=== PATIENT | male | born 1955 | race Caucasian/White ===

== ENCOUNTER 2017-09-21 18:49 | Inpatient (IN) | payer MEDICAID, OTHER ==
[~2017-09-21] VITALS: Ht 172.7 cm; Wt 81.6 kg
[2017-09-21 18:49] VITALS: BP_SYST 170
[~2017-09-21 18:49] MED LIST: CHOL500013 PO; FAMO20TA98 PO; FOLI-43 PO; FURO-150 PO; LEVO25TA58 PO; LORA-259 PO; MAGN400T10 PO; OLAN5TAB3 PO; POTA20TA83 PO; PROP10TA10 PO; SPIR25TA PO; TEMA30CA5 PO; THIA100T13 PO
[2017-09-21 19:22] LABS: BASOPHILS # (AUTO) 0.1 K/uL (0.0-0.2); BASOPHILS % (AUTO) 0.7 % (0.0-2.0); EOSINOPHILS # (AUTO) 0.2 K/uL (0.0-0.4); EOSINOPHILS % (AUTO) 2.5 % (0.0-4.0); HEMATOCRIT 45.3 % (36-54); LYMPHOCYTES # (AUTO) 1.7 K/uL (1.0-5.5); LYMPHOCYTES % (AUTO) 20.4 % (20.5-51.5); MEAN CORPUSCULAR HEMOGLOBIN 31 pg (27-31); MEAN CORPUSCULAR HGB CONC 33 % (32-36); MEAN CORPUSCULAR VOLUME 92 fL (79.0-98.0); MONOCYTES # (AUTO) 0.6 K/uL (0.0-1.0); MONOCYTES % (AUTO) 6.9 % (1.7-9.3); NEUTROPHILS # (AUTO) 5.9 K/uL (1.8-7.7); NEUTROPHILS % (AUTO) 69.5 % (40.0-70.0); PLATELET COUNT (AUTO) 346 K/uL (130-430); RED CELL DISTRIBUTION WIDTH 11.3 % (9.0-15.0); WHITE BLOOD COUNT (AUTO) 8.5 K/uL (4.8-10.8)
[2017-09-21 19:38] LABS: ANION GAP 7 (5-15); CALCIUM 9.2 mg/dL (8.4-11.0); CHLORIDE 91 mmol/L (98-107); CREATININE 1.12 mg/dL (0.55-1.30); POTASSIUM 4.2 mmol/L (3.5-5.1); SODIUM SERUM 126 mmol/L (136-145); UREA NITROGEN, BLOOD 9 mg/dL (8-21)
[2017-09-21 19:44] LABS: GFR AFRICAN AMERICAN 86 mL/min (>90); INR 0.9 (0.80-1.20); PROTHROMBIN TIME 9.4 SECS (9.5-12.5)
[2017-09-21 19:54] LABS: ALANINE AMINOTRANSFERASE 19 U/L (12-78); ALBUMIN 3.9 g/dL (3.4-4.8); ASPARTATE AMINOTRANSFERASE 14 U/L (10-37); FREE T4 (FREE THYROXINE) 0.9 ng/dL (0.6-1.6); TOTAL BILIRUBIN 0.6 mg/dL (0.0-1.0)
[2017-09-21 19:55] LABS: GLUCOSE 471 mg/dL (70-99)
[2017-09-21 19:56] LABS: ALCOHOL, BLOOD < 3 mg/dL (<10)
[2017-09-21] MEDS ORDERED: hydrALAZINE HCL 20 MG/ML VIAL IVP ONE (20:15)
[2017-09-21] MEDS ORDERED: NACL 0.9% 1,000 ML IV ONE (20:15)
[2017-09-21] MEDS ORDERED: INSULIN REGULAR, HUMAN 10 UNITS/0.1 ML INJ IVP ONE (20:15)
[2017-09-21] MEDS ORDERED: LORazepam 2 MG/ML VIAL (FOR ER USE) ONE (21:25)
[2017-09-21] MEDS ORDERED: LORazepam 2 MG/ML VIAL (FOR ER USE) IVP ONE (21:30)
[2017-09-21] MEDS ORDERED: LORazepam 2 MG/ML VIAL IVP PRN (21:45)
[2017-09-21] MEDS ORDERED: THIAMINE HCL 100 MG in NS 50 ML IV ONE (21:45)
[2017-09-21] MEDS ORDERED: PHENYTOIN SODIUM INJ 500 MG in NS 100 ML IV ONE (21:45)
[2017-09-21] MEDS ORDERED: cloNIDine HCL 0.1 MG TABLET PO PRN (21:45)
[2017-09-21 22:21] VITALS: BP_SYST 156
[2017-09-21 22:21] LABS: BILIRUBIN,URINE NEGATIVE (NEGATIVE); BLOOD, URINE NEGATIVE (NEGATIVE); CLARITY/URINE CLEAR (CLEAR); COLOR,URINE YELLOW (YELLOW); GLUCOSE,URINE 3+ (NEGATIVE); KETONES,URINE NEGATIVE (NEGATIVE); LEUKOCYTE ESTERASE ,URINE NEGATIVE (NEGATIVE); NITRITE, URINE NEGATIVE (NEGATIVE); PH,URINE 6.5 (5.0-8.0); PROTEIN URINE 1+ (NEGATIVE); UROBILINOGEN,URINE 0.2 (0.2-1.0)
[2017-09-21 22:27] LABS: BACTERIA,URINE RARE /HPF (None Seen); RBC,URINE 0-3 /HPF (0-3); WBC,URINE 0-3 /HPF (0-3)
[2017-09-21 22:32] LABS: BARBITURATE, URINE NEGATIVE (NEG <=200); BENZODIAZEPINE, URINE NEGATIVE (NEG <=150); CANNABINOID, URINE NEGATIVE (NEG <=50); COCAINE, URINE NEGATIVE (NEG <=150); METHAMPHETAMINES SCREEN,URINE NEGATIVE (NEG <=500); OPIATE, URINE NEGATIVE (NEG <=100); PHENCYCLIDINE SCREEN,URINE NEGATIVE (NEG <=25); UR TRICYCLIC ANTIDEPRESSANTS NEGATIVE (NEG <=300); URINE AMPHETAMINE NEGATIVE (NEG <=500); URINE METHADONE NEGATIVE (NEG <=200); URINE OXYCODONE SCREEN NEGATIVE (NEG <=100); URINE PROPOXYPHENE SCREEN NEGATIVE (NEG <=300)
[2017-09-21] MEDS ORDERED: PHENYTOIN SODIUM 100 MG/2 ML VIAL (DILANTIN) ONE ×2 (22:33→22:35)
[2017-09-21] MEDS: INSULIN REGULAR, HUMAN 100 UNITS/ML, 10 ML VIAL (novoLIN R) SUBCUT PRN (23:16)
[2017-09-22] MEDS ORDERED: THIAMINE HCL 100 MG TABLET PO ONE
[2017-09-22] MEDS: INSULIN REGULAR, HUMAN 100 UNITS/ML, 10 ML VIAL (novoLIN R) SUBCUT PRN ×5 (03:08→20:37)
[2017-09-22 04:00] VITALS: BP_SYST 133
[2017-09-22 08:00] VITALS: BP_SYST 123
[2017-09-22] MEDS ORDERED: ALBUTEROL SULFATE 0.083% 2.5 MG/3 ML VIAL.NEB INH ONE (08:30)
[2017-09-22 12:34] VITALS: BP_SYST 115
[2017-09-22] MEDS ORDERED: PHENYTOIN 100 MG CAPSULE PO ONE (15:00)
[2017-09-22] MEDS ORDERED: GLUCOSE 15 GM GEL (in 37.5 GM TUBE) PO PRN ×2 (15:30)
[2017-09-22] MEDS ORDERED: DEXTROSE 50%-WATER 50 ML DISP.SYRIN IVP PRN ×2 (15:30)
[2017-09-22 16:13] VITALS: BP_SYST 147
[2017-09-22 20:00] VITALS: BP_SYST 156
[2017-09-22] MEDS: PHENYTOIN 100 MG CAPSULE PO SCH (20:36)
[2017-09-22 23:48] VITALS: BP_SYST 134
[2017-09-23 06:30] LABS: CALCIUM 8.5 mg/dL (8.4-11.0); CREATININE 0.86 mg/dL (0.55-1.30); POTASSIUM 3.4 mmol/L (3.5-5.1)
[2017-09-23 06:40] LABS: ALBUMIN 3.3 g/dL (3.4-4.8); TOTAL BILIRUBIN 0.5 mg/dL (0.0-1.0)
[2017-09-23 07:23] LABS: BASOPHILS # (AUTO) 0.1 K/uL (0.0-0.2); BASOPHILS % (AUTO) 0.9 % (0.0-2.0); EOSINOPHILS # (AUTO) 0.2 K/uL (0.0-0.4); EOSINOPHILS % (AUTO) 1.9 % (0.0-4.0); HEMOGLOBIN 14.2 g/dL (14.0-18.0); LYMPHOCYTES # (AUTO) 2.4 K/uL (1.0-5.5); LYMPHOCYTES % (AUTO) 24.9 % (20.5-51.5); MEAN CORPUSCULAR HEMOGLOBIN 31 pg (27-31); MEAN CORPUSCULAR HGB CONC 33 % (32-36); MEAN CORPUSCULAR VOLUME 92 fL (79.0-98.0); MONOCYTES # (AUTO) 0.5 K/uL (0.0-1.0); MONOCYTES % (AUTO) 5.4 % (1.7-9.3); NEUTROPHILS # (AUTO) 6.5 K/uL (1.8-7.7); NEUTROPHILS % (AUTO) 66.9 % (40.0-70.0); PLATELET COUNT (AUTO) 327 K/uL (130-430); RED BLOOD CELL COUNT(AUTO) 4.67 MIL/uL (4.2-6.2); RED CELL DISTRIBUTION WIDTH 11.7 % (9.0-15.0); WHITE BLOOD COUNT (AUTO) 9.7 K/uL (4.8-10.8)
[2017-09-23 08:00] VITALS: BP_SYST 140
[2017-09-23] MEDS: PHENYTOIN 100 MG CAPSULE PO SCH ×2 (08:28→20:45)
[2017-09-23 08:31] LABS: PROTHROMBIN TIME 9.9 SECS (9.5-12.5)
[2017-09-23] MEDS: INSULIN REGULAR, HUMAN 100 UNITS/ML, 10 ML VIAL (novoLIN R) SUBCUT PRN ×3 (11:35→20:55)
[2017-09-23] MEDS ORDERED: POTASSIUM CHLORIDE 20 MEQ TAB.PRT.SR PO ONE (12:15)
[2017-09-23 12:27] VITALS: BP_SYST 133
[2017-09-23] MEDS ORDERED: ASPIRIN 81 MG TABLET(ECOTRIN) PO ONE (15:15)
[2017-09-23 16:35] VITALS: BP_SYST 147
[2017-09-23 19:15] VITALS: BP_SYST 153
[2017-09-23] MEDS: POTASSIUM CHLORIDE 20 MEQ/PKT PACKET PO SCH (20:45)
[2017-09-24 00:59] VITALS: BP_SYST 154
[2017-09-24 07:24] LABS: BASOPHILS # (AUTO) 0.1 K/uL (0.0-0.2); BASOPHILS % (AUTO) 1.1 % (0.0-2.0); EOSINOPHILS # (AUTO) 0.4 K/uL (0.0-0.4); EOSINOPHILS % (AUTO) 3.5 % (0.0-4.0); HEMATOCRIT 43.2 % (36-54); HEMOGLOBIN 14.4 g/dL (14.0-18.0); LYMPHOCYTES # (AUTO) 2.6 K/uL (1.0-5.5); LYMPHOCYTES % (AUTO) 25.5 % (20.5-51.5); MEAN CORPUSCULAR HEMOGLOBIN 30 pg (27-31); MEAN CORPUSCULAR HGB CONC 33 % (32-36); MEAN CORPUSCULAR VOLUME 91 fL (79.0-98.0); MONOCYTES # (AUTO) 0.6 K/uL (0.0-1.0); MONOCYTES % (AUTO) 5.7 % (1.7-9.3); NEUTROPHILS # (AUTO) 6.4 K/uL (1.8-7.7); NEUTROPHILS % (AUTO) 64.2 % (40.0-70.0); PLATELET COUNT (AUTO) 354 K/uL (130-430); RED BLOOD CELL COUNT(AUTO) 4.73 MIL/uL (4.2-6.2); RED CELL DISTRIBUTION WIDTH 11.6 % (9.0-15.0); WHITE BLOOD COUNT (AUTO) 10.1 K/uL (4.8-10.8)
[2017-09-24 07:25] LABS: CALCIUM 9.2 mg/dL (8.4-11.0); CREATININE 0.85 mg/dL (0.55-1.30); POTASSIUM 4.2 mmol/L (3.5-5.1)
[2017-09-24 08:00] VITALS: BP_SYST 151
[2017-09-24] MEDS: PHENYTOIN 100 MG CAPSULE PO SCH (08:15)
[2017-09-24] MEDS: POTASSIUM CHLORIDE 20 MEQ/PKT PACKET PO SCH (08:15)
[2017-09-24] MEDS ORDERED: ASPIRIN 81 MG TABLET(ECOTRIN) PO SCH (09:00)
[2017-09-24] MEDS: INSULIN REGULAR, HUMAN 100 UNITS/ML, 10 ML VIAL (novoLIN R) SUBCUT PRN ×2 (11:46→16:59)
[2017-09-24 12:19] VITALS: BP_SYST 142
[2017-09-24] MEDS ORDERED: ASPI-1063 PO (14:30)
[2017-09-24] MEDS ORDERED: PHEN100C4 PO (14:30)
[2017-09-24] MEDS ORDERED: THIA100T13 PO (14:31)
[2017-09-24] MEDS ORDERED: MULT PO (14:31)
[2017-09-24] MEDS ORDERED: INSU10VI4 SUBCUT ×2 (14:35→14:36)
[2017-09-24 16:04] VITALS: BP_SYST 149
[2017-09-24 16:35] VITALS: BP_SYST 149
== END 2017-09-24 18:15 | disposition home or self-care (01) | DRG 638 ==
LOC: SED 18:49 → STU 21:37 → SMU 09-24 13:00
PROVIDERS: ADMIT Internal Medicine; ATTEND Internal Medicine
DX: E11.65 Type 2 diabetes mellitus with hyperglycemia (principal); E87.1 Hypo-osmolality and hyponatremia; E11.40 Type 2 diabetes mellitus with diabetic neuropathy, unspecified; F03.90 Unspecified dementia, unspecified severity, without behavioral disturbance, psychotic disturbance, mood disturbance, and anxiety; R55 Syncope and collapse; K74.60 Unspecified cirrhosis of liver; E03.9 Hypothyroidism, unspecified; F10.20 Alcohol dependence, uncomplicated; Y90.0 Blood alcohol level of less than 20 mg/100 ml; I10 Essential (primary) hypertension; K21.9 Gastro-esophageal reflux disease without esophagitis; Z91.14 Patient's other noncompliance with medication regimen; Z79.899 Other long term (current) drug therapy; Z86.73 Personal history of transient ischemic attack (TIA), and cerebral infarction without residual deficits
CPT/HCPCS: 36415; 70450-TC; 71045; 74018; 80048; 80053; 80307; 81000-TC; 82140-TC; 82962; 83036; 83605; 83735-TC; 83880; 84439; 84484; 85025; 85610-TC; 87040-TC; 93005; 93880; 95816; 96361; 96374; 96375; 99285; G0482; J0360; J1165; J1815; J2060; J3411; J7030